=== PATIENT | female | born 1990 | race African-American/Black ===

== ENCOUNTER 2017-04-18 08:39 | Emergency (ER) | payer BC, MEDICAID ==
[~2017-04-18] VITALS: Ht 172.7 cm; Wt 64.9 kg
[~2017-04-18 08:39] MED LIST: PREN-96 PO
[2017-04-18 09:46] LABS: Basophils # (auto) 0.1 uL; Basophils % (auto) 1.1 % (0.0-2.0); Eosinophils # (auto) 0.1 uL; Eosinophils % (auto) 1.8 % (0.0-7.0); Hematocrit 42.2 % (36.0-46.0); Hemoglobin 14.1 g/dL (12.2-16.2); Lymphocytes # (auto) 1.5 uL; Lymphocytes % (auto) 29.8 % (10.0-50.0); Mean Corpuscular Hemoglobin 29.4 pg (28.0-32.0); Mean Corpuscular Hgb Conc. 33.3 g/dL (32.0-36.0); Mean Corpuscular Volume 88.1 fL (80.0-100.0); Monocytes # (auto) 0.5 uL; Monocytes % (auto) 9.1 % (0.0-12.0); Neutrophils % (auto) 58.2 % (37.0-80.0); Platelet Count (auto) 201 10^3/uL (140-450); Red Blood Cells 4.79 10^6/uL (4.0-5.20); White Blood Cell 5.2 10^3/uL (4.4-10.8)
[2017-04-18 10:00] LABS: Urine Bacteria NONE SEEN /hpf (None Seen); Urine Blood Negative /uL (Negative); Urine Mucus FEW (None Seen); Urine Specific Gravity 1.008 (1.001-1.035); Urine WBC 3 /hpf (0 - 5)
[2017-04-18 10:06] LABS: BUN/Creatinine Ratio 8.5; Bilirubin, Total 0.8 mg/dL (0.2-1.0); Calcium 8.5 mg/dL (8.5-10.1); Potassium 3.8 mmol/L (3.5-5.1); Total Protein 7.9 g/dL (6.4-8.2)
[2017-04-18 10:34] VITALS: BP 127/96
== END 2017-04-18 11:41 | disposition home or self-care (01) ==
LOC: ER 08:39
DX: R10.9 Unspecified abdominal pain (principal); F17.210 Nicotine dependence, cigarettes, uncomplicated
CPT/HCPCS: 36415; 80053; 81001; 81025; 85025; 94761

== ENCOUNTER → 2020-03-05 | Day surgery (SDC) | payer MEDICAID ==
[~2020-03-05] VITALS: Ht 172.7 cm; Wt 90.7 kg
[~2020-03-05] MED LIST changes: +FERRIC SUBSULFATE TOPICAL SOLN 30 ML BTL ONE; +HYDROmorphone HCL 2 MG/ML VL IV PRN; +IODINE STRONG 5% SOLN 14ML ONE; +KETOROLAC TROMETH 30 MG/ML 1ML VIAL ONE; +LACTATED RINGER'S 1,000 ML IV SCH; +LIDOCAINE 1% (LOCAL ANESTH.) PF 5ml SDV ONE; +METOCLOPRAMIDE HCL 5MG/ml INJ 2ml VIAL ONE; +MIDAZOLAM HCL 1MG/1ML-2 ML VIAL ONE; +NALOXONE HCL 0.4 MG/ML VIAL IV PRN; +ONDANSETRON HCL 4 MG/2 ML VIAL IV PRN; +PROPOFOL 10 MG/ML 20 ML IV ONE; +ROCURONIUM 10MG/ML 10ML VIAL IV ONE; +SUCCINYLCHOLINE CHLORIDE 20 MG/ML 10ML VIAL IV ONE; +ceFAZolin 1GM/50ML 50 ML IV ONE; +fentaNYL CITRATE 100 MCG/2 ML VL ONE
[2020-03-05 11:52] LABS: Hematocrit 37.2 % (36.0-46.0)
[2020-03-05 11:55] VITALS: BP 125/73
== END | disposition home or self-care (01) ==
LOC: MERGE 08:38 → SUR 08:38
PROVIDERS: ATTEND Obstetrics & Gynecology
DX: Z30.2 Encounter for sterilization (principal); R87.613 High grade squamous intraepithelial lesion on cytologic smear of cervix (HGSIL); E66.9 Obesity, unspecified; Z68.30 Body mass index [BMI] 30.0-30.9, adult; Z20.828 Contact with and (suspected) exposure to other viral communicable diseases; Z98.890 Other specified postprocedural states; Z79.899 Other long term (current) drug therapy; Z80.8 Family history of malignant neoplasm of other organs or systems; Z80.59 Family history of malignant neoplasm of other urinary tract organ
CPT/HCPCS: 36415; 57522; 58671; 85014; 85018; 86850; 86900; 86901; 88305; J0330; J0690; J1170; J1885; J2250; J2405; J2704; J2765; J3010; U0003